=== PATIENT | female | born 1980 | race Caucasian/White ===

== ENCOUNTER 2017-01-12 23:50 | Emergency (ER) | payer MEDICAID ==
[2017-01-13] VITALS: BP 126/88
== END 2017-01-13 02:01 | disposition home or self-care (01) ==
LOC: ED 23:50
DX: S90.111A Contusion of right great toe without damage to nail, initial encounter (principal); X58.XXXA Exposure to other specified factors, initial encounter; Y93.89 Activity, other specified; Y99.8 Other external cause status; Y92.89 Other specified places as the place of occurrence of the external cause

== ENCOUNTER 2017-06-24 19:37 | Emergency (ER) | payer MEDICAID ==
[~2017-06-24] VITALS: Ht 160 cm; Wt 85.7 kg
[2017-06-24 21:10] LABS: BASOPHIL % 0.7 % (0-2); PLATELET COUNT 200 x10^3mcL (130-400); RED CELL DISTRIBUTION WIDTH 13.2 % (11.5-14.5)
[2017-06-24 21:17] LABS: CALCIUM 9.2 mg/dL (8.5-10.1); CARBON DIOXIDE 28.1 mmol/L (21-32); CHLORIDE SERUM 105 mmol/L (98-107); GFR1 > 60 mL/min; GLUCOSE SERUM 125 mg/dL (74-106); POTASSIUM SERUM 3.6 mmol/L (3.5-5.1); SODIUM SERUM 141 mmol/L (136-145)
[2017-06-24 21:43] LABS: microscopic required? YES; urine erythrocyte TRACE (NEGATIVE)
[2017-06-24 23:24] VITALS: BP 148/92
== END 2017-06-24 23:24 | disposition home or self-care (01) ==
LOC: ED 19:37
PROVIDERS: Emergency Medicine
DX: O20.0 Threatened abortion (principal); Z3A.09 9 weeks gestation of pregnancy
CPT/HCPCS: 36415

== ENCOUNTER 2018-04-16 02:32 | Emergency (ER) | payer MEDICAID ==
[~2018-04-16] VITALS: Ht 160 cm; Wt 86.4 kg
[2018-04-16 02:37] VITALS: Ht 160 cm; Wt 86.4 kg
[2018-04-16 03:15] LABS: CALCIUM 9.1 mg/dL (8.5-10.1); CARBON DIOXIDE 28.5 mmol/L (21-32); CHLORIDE SERUM 100 mmol/L (98-107); CREATININE SERUM 0.8 mg/dL (0.6-1.0); GFR1 > 60 mL/min; GLUCOSE SERUM 120 mg/dL (74-106); POTASSIUM SERUM 4.2 mmol/L (3.5-5.1); SODIUM SERUM 135 mmol/L (136-145)
[2018-04-16 03:25] LABS: ALKALINE PHOSPHATASE 74 U/L (46-116); ALT/SGPT 28 U/L (14-59); AST/SGOT 15 U/L (15-37); BILIRUBIN TOTAL 0.4 mg/dL (0.20-1.00); LIPASE 87 IU/L (73-393); TOTAL PROTEIN, SERUM 7.6 g/dL (6.4-8.2)
[2018-04-16 03:27] LABS: BASOPHIL % 0.4 % (0-2); PLATELET COUNT 205 x10^3mcL (130-400); RED CELL DISTRIBUTION WIDTH 12.5 % (11.5-14.5)
[2018-04-16 03:51] LABS: ALBUMIN 3.2 g/dL (3.4-5.0)
[2018-04-16 05:19] VITALS: BP 118/74
== END 2018-04-16 05:19 | disposition home or self-care (01) ==
LOC: ED 02:32
PROVIDERS: Emergency Medicine
DX: K52.9 Noninfective gastroenteritis and colitis, unspecified (principal)
CPT/HCPCS: J2270; J2405; J2543; J3490; J7030

== ENCOUNTER 2018-08-13 20:23 | Emergency (ER) | payer MEDICAID ==
[~2018-08-13] VITALS: Ht 160 cm; Wt 85.3 kg
[2018-08-13 20:38] VITALS: Ht 160 cm; Wt 85.3 kg
[2018-08-13 23:15] VITALS: BP 108/70
== END 2018-08-13 23:15 | disposition home or self-care (01) ==
LOC: ED 20:23
DX: R10.30 Lower abdominal pain, unspecified (principal); R30.0 Dysuria
CPT/HCPCS: J0696